=== PATIENT | male | born 1960 | race Caucasian/White ===

== ENCOUNTER 2023-05-02 10:16 | Outpatient (AMB) | payer OTHER, SELFPAY ==
--- NOTE | 2023-05-02 10:14 | A.OFFPC_ITS ---
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 Woodall Last office visit/CPE: < 1 yr Acute issue(s): TN 2-3 years ago PMHx: CAD, [place] (Cardiology at [facility]), HTN, HLD, h/o opiate use d.o after back pain meds, kidney stones, Peyrones disease. h/o alcohol abuse SurgHx: Cardiac stents, lumbar pain discectomy FHx: Dad: EtOH, Heart disease/CAD/[place], Prostate CA SocHx: Quit cigs 10-12 years ago. EtOH none x 20 years. No drugs PFSH Medical History (Updated 05/02/23 @ 11:10 by Aristides Velasquez) Alcohol abuse Asthma Heart attack Lower back pain Opiate use Peyronie's disease Surgical History (Updated 05/02/23 @ 10:25 by Elena Patterson CMA) Previous back surgery Stented coronary artery Family History (Updated 05/02/23 @ 10:27 by Elena Patterson CMA) Father Heart attack Alcoholism Brother Alcoholism Social History (Updated 05/02/23 @ 10:31 by Elena Patterson CMA) Household Members: Spouse Housing: Apartment Alcohol intake: former Patient Tobacco Use Status: Former Tobacco user e-Cigarette/Vaping Use: Former Use Substance Use Type: Painkillers Have you been hit, kicked, punched, or otherwise hurt by someone within the past year? If so, by whom?: No Do you feel safe in your current relationship?: Yes Is there a partner from a previous relationship who is making you feel unsafe now?: No Are you made to feel afraid or neglected: No Jainism Healthcare Practices: Pentacostal Are you DNR?: No Advance Directives: No Advance Directives Information Provided: No Advance Directives on File: No Healthcare Proxy: No service: No Current occupational status: retired Cognitive needs: No Hearing needs: No Vision needs: Yes (Patient wears glasses.) Questionnaire PHQ-9 Over the last 2 weeks, how often have you been bothered by any of the following problems? 1. Little interest or pleasure in doing things: several days 2. Feeling down, depressed, or hopeless: not at all 3. Trouble falling or staying asleep, or sleeping too much: several days 4. Feeling tired or having little energy: more than half the days 5. Poor appetite or overeating: more than half the days 6. Feeling bad about yourself - or that you are a failure or have let yourself or your family down: more than half the days 7. Trouble concentrating on things, such as reading the newspaper or watching television: several days 8. Moving or speaking so slowly that other people could have noticed. Or the opposite - being so fidgety or restless that you have been moving around a lot more than usual: not at all 9. Thoughts that you would be better off or of hurting yourself in some way: not at all Total score: 9 Source: Developed by Drs. Anderson Jones, Anita Ahumada, Nahun Staley and colleagues, with an educational lauri from [employer]. Thrive Questionnaire I am a: Patient What is your living situation today?: I have a steady place to live Within the past 12 months, did the food you bought not last and you didn't have the money to get more?: Never true Within the past 12 months, did you worry whether your food would run out before you got money to buy more?: Never true Do you have trouble paying for medicines?: No Do you have trouble getting transportation to medical appointments?: Yes Do you have trouble paying your heating and electricity bill?: Yes Do you have trouble taking care of your child, family member or friend?: No Do you have trouble with day-to-day activities such as bathing, preparing meals, shopping, managing finances, etc.?: No Are you currently unemployed and looking for a job?: No Are you interested in more education?: No AUDIT C Alcohol Use Questionnaire (AUDIT-C) 1. How often do you have a drink containing alcohol?: Never 3. How often do you have six or more drinks on one occasion?: Never Total Score: 0 TOSHIA-7 AMB Questionnaire TOSHIA-7 Feeling nervous, anxious, or on edge: 1 = Several days Not being able to stop or control worryin = Nearly every day Worrying too much about different things: 3 = Nearly every day Trouble relaxin = Nearly every day Being so restless that it is hard to sit still: 1 = Several days Becoming easily annoyed or irritable: 0 = Not at all Feeling afraid as if something awful might happen: 0 = Not at all Total TOSHIA-7 score (0-4 normal; 5-9 mild; 10-14 moderate; 15-21 severe): 11 Source: Developed by Drs. Anderson Jones, Anita Ahumada, Nahun Staley and colleagues, with an educational lauri from [employer]. ACT Questionnaire In the past 4 weeks, how much of the time did your asthma keep you from getting as much done at work, school or at home?: Some of the time During the past 4 weeks, how often have you had shortness of breath?: 1-2 times a week During the past 4 weeks, how often did your asthma symptoms wake you up at night or earlier than usual in the morning?: 2-3 nights a week During the past 4 weeks, how often have you had to use your rescue inhaler or nebulizer medication?: Not at all How would you rate your asthma control during the past 4 weeks?: Well controlled Score: 18 Physical exam (Primary Care) Vital Signs: Last Vital Signs Pulse 64 05/02/23 10:16 BP 126/78 05/02/23 10:16 Pulse Ox 98 05/02/23 10:16 Oxygen Delivery Method Room Air 05/02/23 10:16 BMI result Body Mass Index 25.7 Tobacco/Smoking Status: Tobacco use Status Tobacco use date assessed 05/02/23 05/02/23 10:35 Patient Tobacco Use Status Former Tobacco user 05/02/23 10:35 e-Cigarette/Vaping Use Former Use 05/02/23 10:35 PHQ-9: PHQ-9 Score PHQ-9: Total score 9 05/02/23 10:53 Assessment and Plan Assessment & Plan (1) Coronary artery disease: Code(s): I25.10 - Atherosclerotic heart disease of [place] coronary artery without angina pectoris Plan: History of coronary artery disease and [place]. Appears to have cardiology at [facility] with annual follow-up visits. EKG: Normal sinus rhythm, normal axis, no hypertrophy, old septal infarct. He is on atorvastatin and also has blood pressure control with metoprolol and losartan No medication changes today Follow-up with Cardiology as recommended (2) History of [place] (myocardial infarction): Code(s): I25.2 - Old myocardial infarction Plan: As above and status post stents (3) Hypertension: Code(s): I10 - Essential (primary) hypertension Plan: Blood pressure is controlled. Goal is less than 130/80 Continue current medications (4) Hyperlipidemia: Code(s): E78.5 - Hyperlipidemia, unspecified Plan: History of coronary artery disease and [place] LDL goal is less than 70 Check labs (5) Laboratory exam ordered as part of routine general medical examination: Code(s): Z00.00 - Encounter for general adult medical examination without abnormal findings Plan: Check labs (6) Peyronie disease: Code(s): N48.6 - Induration penis plastica Orders: Orders Comprehensive [place]. Panel Fast Today Z00.00 - Encounter for general adult medical examination without abnormal findings Lipid Panel Today Z00.00 - Encounter for general adult medical examination without abnormal findings Prostate Specific Antigen Scr Today Z12.5 - Encounter for screening for maligna nt neoplasm of prostate TSH reflex Free T4 Today Z00.00 - Encounter for general adult medical examination without abnormal findings Microalbumin, Random (w Creat) Today I10 - Essential (primary) hypertension Complete Blood Count Auto Diff Today Z00.00 - Encounter for general adult medical examination without abnormal findings UA and rflx microscopic Today Z00.00 - Encounter for general adult medical examination without abnormal findings AMB EKG-In Office Today I25.2 - Old myocardial infarction Referrals Urology Referral N48.6 - Induration penis plastica Coding Level of Care Code New Pt Level 4 (46558) Diagnoses Coronary artery disease I25.10 History of [place] (myocardial infarction) I25.2 Hypertension I10 Hyperlipidemia E78.5 Laboratory exam ordered as part of routine general medical examination Z00.00 Peyronie's disease N48.6
[2023-05-02 10:16] VITALS: BP 126/78; PULSE 64; O2SAT 98; BMI 25.7
== END 2023-05-02 11:25 | disposition home or self-care (01) ==
PROVIDERS: PCP Family Medicine; Visit Provider Family Medicine
DX: I25.10 Atherosclerotic heart disease of native coronary artery without angina pectoris (principal); I25.2 Old myocardial infarction; I10 Essential (primary) hypertension; E78.5 Hyperlipidemia, unspecified; Z00.00 Encounter for general adult medical examination without abnormal findings; N48.6 Induration penis plastica
CPT/HCPCS: 99204

== ENCOUNTER 2023-06-07 11:59 | Outpatient (REF) | payer OTHER, SELFPAY ==
[2023-06-07 13:58] LABS: MANUAL DIFF FLAG NO
[2023-06-07 14:11] LABS: Basophils Percent Auto 0.5 % (0-2); Eosinophils Absolute Auto 0.1 X10*3/uL (0.0-0.4); Eosinophils Percent Auto 1.5 % (0-4); Hematocrit 39.9 % (42.0-52.0); Hemoglobin 13.7 g/dl (14.0-18.0); Imm Gran Abs Auto 0.02 X10*3/uL (0.00-0.03); Imm Gran Pct Auto 0.3 % (0.0-0.4); Lymphocytes Absolute Auto 1.6 X10*3/uL (1.2-4.9); Mean Corpuscular HGB Conc 34.3 g/dl (31.0-36.0); Mean Corpuscular Volume 90.3 fL (80.0-98.0); Mean Platelet Volume 11.2 fL (9.4-12.4); Monocytes Absolute Auto 0.5 X10*3/uL (0.1-1.2); Monocytes Percent Auto 7.6 % (2-11); Neutrophils Absolute Auto 4.3 x10*3/uL (2.0-8.3); Neutrophils Percent Auto 66.1 % (45-73); Platelet Count 187 X10*3/uL (160-400); Red Blood Count 4.42 X10*6/uL (4.60-5.80); Red Cell Distribution Width 12.8 % (11.0-16.0); White Blood Count 6.5 X10*3/uL (4.8-10.8)
[2023-06-07 15:09] LABS: Alanine Aminotransferase 14 U/L (0-40); Albumin Level 3.9 g/dL (3.5-5.0); Alkaline Phosphatase 95 U/L (39-117); Anion Gap 10 (12-20); Aspartate Amino Transferase 17 U/L (5-37); Bilirubin Total 0.6 mg/dL (0.0-1.0); Blood Urea Nitrogen 14 mg/dL (9-16); Calcium 9.5 mg/dL (8.4-10.2); Carbon Dioxide 30 mmol/L (22-29); Chloride 105 mmol/L (96-108); Cholesterol 106 mg/dL (<200); Estimated Glomerular Filt Rate > 60; Glucose Fasting 92 mg/dL (60-99); HDL Cholesterol 39 mg/dL (>40); LDL Cholesterol Calculated 52 mg/dL (<100); Potassium 4.2 mmol/L (3.3-5.1); Sodium 141 mmol/L (135-145); Total Protein 7.1 g/dL (6.5-8.0); Triglycerides 76 mg/dL (<150)
[2023-06-07 15:24] LABS: Prostate Specific Antigen Scr 1.55 ng/mL (<0.05-4.0)
[2023-06-07 15:25] LABS: TSH reflex Free T4 1.17 uIU/mL (0.32-4.0)
== END 2023-06-07 12:00 | disposition home or self-care (01) ==
LOC: HO.WFDLDS 11:59
PROVIDERS: Visit Provider Family Medicine
DX: Z00.00 Encounter for general adult medical examination without abnormal findings (principal); Z20.2 Contact with and (suspected) exposure to infections with a predominantly sexual mode of transmission; Z12.5 Encounter for screening for malignant neoplasm of prostate
CPT/HCPCS: 36415; 80053; 80061; 84153; 84443; 85025

== ENCOUNTER 2023-07-10 09:11 | Outpatient (REF) | payer OTHER, SELFPAY ==
[2023-07-10 11:53] LABS: Appearance Urine Clear; Color Urine Yellow; Glucose Urine UA Negative (Negative); Leukocyte Esterase Urine Negative (Negative); Nitrite Urine Negative (Negative); UMIC TRIGGER UA YES; Urine Blood Small (1+) (Negative); Urine Ketones Negative (Negative); Urine Protein Negative (Neg-Trace)
[2023-07-10 11:58] LABS: Bacteria Urine 1+ (None Seen); Hyaline Casts Urine 0-2 /LPF (0-2); Squamous Epithelial Cell Urine 0-2 /HPF (0-2); WBC Urine 0-5 /HPF (0-5)
[2023-07-10 13:20] LABS: Creatinine Urine 99.99 mg/dL; Microalbumin Urine < 5.0 mg/L
== END 2023-07-10 09:12 | disposition home or self-care (01) ==
LOC: HO.WFDLNP 09:11
PROVIDERS: Visit Provider Family Medicine
DX: I10 Essential (primary) hypertension (principal)
CPT/HCPCS: 81001; 82043; 82570

== ENCOUNTER 2025-10-04 11:23 | Outpatient (AMB) | payer MEDICARE, MEDICAID, SELFPAY ==
--- NOTE | 2025-10-04 11:41 | A.OFFPC_ITS ---
Vital Signs 10/04/25 11:44 10/04/25 11:53 Height 5 ft 5 in Weight 158 lb 6 oz BMI 26.4 BP 147/70 H 141/81 H Blood Pressure Location Lt brachial Lt brachial Position Sitting Sitting Respiration 12 Pulse 71 Pulse Source Pulse Oximeter Temp 97.8 F Temp Source Oral Pulse Oximetry (%) 99 Oxygen Delivery Method Room Air Intake Visit Reasons: back issues Intake Note: patient here c/o back issues Supervisor Malt House Required: No Allergies No Known Allergies Allergy (Verified 10/04/25 11:46) Medication List - Last Reconciled 10/04/25 by Sabas Ashley MD atorvastatin 80 mg PO DAILY buprenorphine-naloxone 4-1 mg 1 film sublingual DAILY diclofenac sodium 1% (Arthritis Pain (diclofenac)) 4 grams topical BID 30 days losartan 25 mg PO DAILY metoprolol succinate ER 25 mg PO DAILY naloxone 4 mg/actuation 0 sprays intranasal naproxen 500 mg PO BID PRN 30 days Tobacco use date assessed: 10/04/25 Fall risk assessment: 1 Fall in past year Last assessed Fall Risk: 10/04/25 Dental Screening Dental Screen Date: 10/04/25 Did you have a dental visit in the last 12 months?: No Did you have a dental problem in the last 6 months where you did not have access to dental care?: No Was dental information given to patient?: Patient has dentist HPI back issues HPI Details 65 y/o male presents today with complain ts of back pain. Hx of [place]. Blood pressure today 141/81, 71p. He is on losartan 25mg, metoprolol 25mg daily. Pt notes he had been out of his meds due to insurance issues. He now has insurance. Reports back pain. He had fallen to the ground trying to catch a ball and reports back pain since. Reports previous back surgeries. HPI Comments History of Present Illness Details Documentation assistance for Sabas Ashley MD, was provided by Aristides Velasquez, Equine Manager on 10/04/2025 at 12:22 PM EST. I, Dr. Ashley, have read, observed, and verified documentation. [facility] Medical History (Updated 10/04/25 @ 12:34 by Sabas Ashley MD) Alcohol abuse Peyronie's disease Opiate use Lower back pain Asthma Heart attack Surgical History Previous back surgery Stented coronary artery Family History Father Heart attack Alcoholism Brother Alcoholism Social History (Updated 10/04/25 @ 11:48 by Madyson Campos CMA) Household Members: Spouse Housing: Apartment Alcohol intake: former Patient Tobacco Use Status: Former Tobacco user e-Cigarette/Vaping Use: Former Use Substance Use Type: Former Substance User and Painkillers service: No Current occupational status: retired Cognitive needs: No Hearing needs: No Vision needs: Yes (Patient wears glasses.) Questionnaire PHQ-9 Over the last 2 weeks, how often have you been bothered by any of the following problems? 1. Little interest or pleasure in doing things: several days 2. Feeling down, depressed, or hopeless: not at all 3. Trouble falling or staying asleep, or sleeping too much: nearly every day 4. Feeling tired or having little energy: not at all 5. Poor appetite or overeating: not at all 6. Feeling bad about yourself - or that you are a failure or have let yourself or your family down: not at all 7. Trouble concentrating on things, such as reading the newspaper or watching television: not at all 8. Moving or speaking so slowly that other people could have noticed. Or the opposite - being so fidgety or restless that you have been moving around a lot more than usual: not at all 9. Thoughts that you would be better off or of hurting yourself in some way: not at all Total score: 4 Depression Screening Interpretation: Positive Depression Screening Done: Yes 91166 - PHQ-9 Billing: Yes Source: Developed by Drs. Anderson Jones, Anita Ahumada, Nahun Staley and colleagues, with an educational lauri from [employer]. Thrive Questionnaire Date Thrive assessed: 10/04/25 I am a: Patient What is your living situation today?: I have a steady place to live Within the past 12 months, did the food you bought not last and you didn't have the money to get more?: Never true Within the past 12 months, did you worry whether your food would run out before you got money to buy more?: Never true Do you have trouble paying for medicines?: No Do you have trouble getting transportation to medical appointments?: No Do you have trouble paying your heating and electricity bill?: No Do you have trouble taking care of your child, family member or friend?: No Do you have trouble with day-to-day activities such as bathing, preparing meals, shopping, managing finances, etc.?: No Are you currently unemployed and looking for a job?: No Are you interested in more education?: 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 How often do you have a drink containing alcohol?: Never 3. How often do you have six or more drinks on one occasion?: Never Total Score: 0 TOSHIA-7 AMB Questionnaire TOSHIA-7 Date TOSHIA - 7 assessed: 10/04/25 Feeling nervous, anxious, or on edge: 1 = Several days Not being able to stop or control worryin = Several days Worrying too much about different things: 1 = Several days Trouble relaxin = Not at all Being so restless that it is hard to sit still: 0 = Not at all Becoming easily annoyed or irritable: 0 = Not at all Feeling afraid as if something awful might happen: 1 = Several days Total TOSHIA-7 score (0-4 normal; 5-9 mild; 10-14 moderate; 15-21 severe): 4 Source: Developed by Drs. Anderson Jones, Anita Ahumada, Nahun Staley and colleagues, with an educational lauri from [employer]. Review of Systems Const Denies chills, Denies fatigue, Denies fever(s), Denies headache(s) and Denies weakness ENT Denies dizziness and Denies headache(s) Card Denies dyspnea Resp Denies cough, Denies dyspnea, Denies wheezing and Denies other (shortness of breath) Musc Reports back pain, Denies numbness and Denies tingling Neuro Denies dizziness, Denies headache(s), Denies numbness, Denies tingling and Denies weakness Psych Denies anxiety and Denies depression Endo Denies fatigue Aller/Immun Denies wheezing Physical exam (Primary Care) Vital Signs: Last Vital Signs Temp 97.8 F 10/04/25 11:44 Pulse 71 10/04/25 11:44 Resp 12 10/04/25 11:44 BP 141/81 H 10/04/25 11:53 Pulse Ox 99 10/04/25 11:44 Oxygen Delivery Method Room Air 10/04/25 11:44 BMI result Body Mass Index 26.4 Tobacco/Smoking Status: Tobacco use Status Tobacco use date assessed 10/04/25 10/04/25 11:50 Patient Tobacco Use Status Former Tobacco user 10/04/25 11:48 e-Cigarette/Vaping Use Former Use 10/04/25 11:48 PHQ-9: PHQ-9 Score PHQ-9: Total score 4 10/04/25 11:54 Depression Screening Interpretation: Positive Thrive Assessment: Date of Thrive Assessment Date Thrive assessed 10/04/25 10/04/25 11:54 Currently or been in a relationship where the following occur: No concerns reported Const General: well developed; No acute distress Nutritional Appearance: well nourished Orientation/consciousness: patient oriented x3 HENMT Head: Yes normocephalic and Yes atraumatic Eyes General: appearance normal, both eyes and all related structures Pupils: Equal, round and reactive pupils present EOM: EOMs intact bilaterally Resp Effort & Inspection: normal respiratory effort Auscultation: clear to auscultation bilaterally Cardio Rate: regular rate Rhythm: regular rhythm Heart sounds: S1 normal heart sound present, S2 normal heart sound present, no gallops, no murmurs and no rubs Neuro General: patient oriented x3 and gait normal Cranial nerves: Yes Equal, round and reactive pupils present Psych Affect: normal affect Coding Level of Care Code Est Pt Level 4 (35940) Diagnoses Hypertension I10 Coronary artery disease I25.10 History of [place] (myocardial infarction) I25.2 Back pain M54.9 Additional Codes PHQ-9 - 80245 - PHQ-9 Billing: Yes ([id number]) Assessment & Plan Assessment & Plan (1) Hypertension: Code(s): I10 - Essential (primary) hypertension Category: Medical Plan: Blood pressure is too high in patient with history of CAD and [place]. Goal is less than 130/80 Resume losartan and metoprolol (2) Coronary artery disease: Code(s): I25.10 - Atherosclerotic heart disease of [place] coronary artery without angina pectoris Category: Medical Plan: History of coronary artery disease and [place] Resume atorvastatin Control blood pressure (3) History of [place] (myocardial infarction): Code(s): I25.2 - Old myocardial infarction Category: Medical Plan: As above (4) Back pain: Code(s): M54.9 - Dorsalgia, unspecified Category: Medical Plan Acute on chronic back pain and patient had a recent fall. Now has pain at mid and lower back which wraps around right ribs. Check x-ray of mid and lower back as well as right ribs. Can use NSAIDs so will give him a script for naproxen and also diclofenac Will follow-up on imaging and determine next steps which may include physical therapy or referral. Orders: Orders Complete Blood Count Auto Diff Today Z00.00 - Encounter for general adult medical examination without abnormal findings Lipid Panel Today Z00.00 - Encounter for general adult medical examination without abnormal findings Microalbumin, Random (w Creat) Today I10 - Essential (primary) hypertension Prostate Specific Antigen Scr Today Z12.5 - Encounter for screening for malignant neoplasm of prostate XR lumbar spine 2-3V Today M54.9 - Dorsalgia, unspecified XR ribs RT 2V Today M54.9 - Dorsalgia, unspecified, R07.89 - Other chest pain Comprehensive [place]. Panel Fast Today Z00.00 - Encounter for general adult medical examination without abnormal findings TSH reflex Free T4 Today Z00.00 - Encounter for general adult medical examination without abnormal findings UA CC w/rflx Micro + Cult Today Z00.00 - Encounter for general adult medical examination without abnormal findings XR thoracic spine 2V Today M54.9 - Dorsalgia, unspecified Medications: New naproxen 500 mg PO BID PRN 60 tabs 0RF pain 30 days diclofenac sodium 1% (Arthritis Pain (diclofenac)) apply to single knee, ankle, foot; for foot includes sole/toes/top of foot 4 grams topical BID 200 grams 2RF 30 days Changed From atorvastatin 80 mg PO DAILY To atorvastatin 80 mg PO DAILY 90 tabs 3RF 90 days From losartan 25 mg PO DAILY To losartan 25 mg PO DAILY 90 tabs 3RF 90 days From metoprolol succinate ER 25 mg PO DAILY To metoprolol succinate ER 25 mg PO DAILY 90 tabs 3RF 90 days
[2025-10-04 11:44] VITALS: BP 147/70; PULSE 71; RESP 12; TEMP 36.6; O2SAT 99; BMI 26.4
[2025-10-04 11:53] VITALS: BP 141/81
--- OUTSIDE RECORDS SUMMARY | 2025-10-04 14:34 | XMS_ITS | Clinical Summary ---
Author Organization [employer] Address [address] [place] [address] Care Team Providers Care Corporate Fitness Program Coordinator Name Role Phone Unavailable Primary Care Provider Unavailabl e Social History Tobacco Use Types Packs/Day Years Used Date Smoking Tobacco: Never Assessed Sex and Gender Information Value Date Recorded Sex Assigned at Male 08/13/2022 10:17 AM EDT Legal Sex Male 10:17 AM EDT Gender Identity Male 08/13/2022 10:17 AM EDT Sexual Orientation Straight 08/13/2022 10 :17 AM EDT Plan of Treatment Health Maintenance Due Date Last Done Comments CT Colonography 1958 Colonoscopy 1958 Colorectal Cancer Screening 1958 Depression Screening 1958 FIT DNA/Cologuard 1958 FIT 1958 FOBT 1958 Lipid Panel 1958 Sigmoidoscopy 1958 Alcohol/Substance Use Screening 1970 Tobacco Screening 1970 DTaP/Tdap/Td Vaccines (1 - Tdap) 1977 Pneumococcal Vaccine: 50+ Ye ars (1 of 1 - PCV) 2008 Zoster Vaccines (1 of 2) 2008 COVID-19 Vaccine ( - 2024-2 6 season) 2025 Influenza Vaccine (#1) 2025 RSV Patients and Pa tients Aged 60 years or older (1 - 1-dose 75+ series) 2033 HIB Vaccines Aged Out No longer eligi ble based on patient's age to complete this topic HPV Vaccines Aged Out No longer eligi ble based on patient's age to complete this topic Hepatitis A Vaccines Aged Out No long er eligible based on patient's age to complete this topic Hepatitis B Vaccines Aged Out No long er eligible based on patient's age to complete this topic IPV Vaccines Aged Out No longer eligi ble based on patient's age to complete this topic Meningococcal B Vaccine Aged Out No l onger eligible based on patient's age to complete this topic Meningococcal Vaccine Aged Out No vangie miller eligible based on patient's age to complete this topic RSV under 20 months Aged Out No longe r eligible based on patient's age to complete this topic Rotavirus Vaccines Aged Out No longer eligible based on patient's age to complete this topic
--- OUTSIDE RECORDS SUMMARY | 2025-10-04 14:34 | XMS_ITS | Encounter Summary ---
Author Organization [facility] Address [address] [place] [phone] Phone Care Team Providers Care Light Out Examiner Name Role Phone Hay Mayberry NP Primary Care Provider [phone] Reason for Referral * MRI/CAT Scan - Closed Specialty Diagnoses / Procedures Referred By Contvladislav t Referred To Contact Radiology Diagnoses 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 pectoris Procedures NC Myocardial Perfusion Exercise Multiple NC Myocardial Perfusion Stress Single Christian Shields MD Phone: tel: [email or web address]:[email or web address] Referral ID Status Reason Start Date Expiration Date Visits Re quested Visits Authorized [id number] Closed 11/19/2017 11/19/2018 1 1 Encounter Details Date Type Department Care Team (Latest Contact Info) Description 11/28/2017 Ancillary Orders [facility] [address] [facility] 3[address] Floor, [address] [place] [address] Christian Shields MD [address] [place] [phone] [email or web address] 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 pectoris Social History Tobacco Use Types Packs/Day Years Used Date Smoking Tobacco: Never Assessed Sex and Gender Information Value Date Recorded Sex Assigned at Not on file Legal Sex Male 9:29 AM EST Gender Identity Not on file Sexual Orientation Not on file documented as of this encounter Plan of Treatment Not on file documented as of this encounter Results * NC Myocardial Perfusion Exercise Multiple (12/31/2017 1:23 PM EDT) Anatomical Region Laterality Modality Heart, Vascular Ultrasound Narrative 01/02/2018 1:48 PM EDT Abnormal study There is a medium-sized area of severe fixed decreased tracer uptake involving the distal anterior wall, distal septum and apex consistent with a transmural LAD scar. There is no evidence of significant ischemia. Mild LV dysfunction with apical akinesis. Study Quality Overall image quality is good. There are no artifacts present. NC Study Impression There is no prior study for comparison. Stress Test Result Exercise Stress Test Report: Reason for termination: Fatigue and chest pressure Summary: Resting ECG: SR HR 75 with incomplete IVCD and NSSTW Functional capacity: Fair Heart rate response to exercise: Appropriate Blood pressure response to exercise: Normal resting-appropriate response Chest pain: 4/10 left upper chest pressure at peak exercise that resolves with rest Arrhythmias: None ST-T changes:None Overall impression: Abnormal exercise stress test Conclusion: Aristides Ruiz exercised for 7:16 Minutes on a standard Bar protocol achieving 90% MPHR (146 BPM) and 10.10 METS. Test terminated due to fatigue Summary: 1. EKG: No EKG evidence of ischemia per criteria 2. Symptoms: 4/10 left upper chest pressure at peak exercise that resolves with rest 3. Exercise physiology: Normal heart rate and BP response to exercise. Max HR 146 With normal HR recovery. Max BP 160/90 From baseline BP of 124/70 . 02 sat 98% and stable throughout the procedure. Fair functional capacity for age noted 4. Arrhythmia:None Conclusion: Abnormal exercise stress test. No ischemic EKG changes, however pt was noted to have 4/10 left upper chest pressure at peak exercise that resolved with rest. Vital signs at baseline at time of discharge from the lab. Nuclear images to follow. EKG reviewed with Dr. Gen Cameron ACCOUNTING ASSOCIATE Nuclear Cardiology Measurements End systolic (mL): 48 TID: 1 End diastolic (mL): 99 Stress EF=52% Rest EF=44% Ejection Fraction: Mild (40-49%)Patient was injected Lt AC IV during stress with 12.2mCi Tc99m Sestamibi and with 12.1mCi Tc99m Sestamibi Lt AC at rest. Nuclear Study Quality Overall image quality is good. There are no artifacts present. Nuclear Prior Study Abnormal study There is a medium-sized area of severe fixed decreased tracer uptake involving the distal anterior wall, distal septum and apex consistent with a transmural LAD scar. There is no evidence of significant ischemia. Mild LV dysfunction with apical akinesis.. Perfusion Scoring Resting Summed Score: 7 Percent Normal: 10.29% Severe count reduction in the following segments: apical anterior and apex. Mild count reduction in the following segments: mid anterior. All other segments are normal. Perfusion Scoring Stress Summed Score: 11 Percent Normal: 16.18% Severe count reduction in the following segments: apical anterior, apical septal and apex. Mild count reduction in the following segments: basal anteroseptal and mid anterior. All other segments are normal. 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 It is not the complete legal health record.[facility]
--- OUTSIDE RECORDS SUMMARY | 2025-10-04 14:34 | XMS_ITS | Clinical Summary ---
Author Organization [facility] Address [address] [place] [address] Phone Care Team Providers Care Faculty Physician Name Role Phone Hay Mayberry NP Primary Care Provider Social History Tobacco Use Types Packs/Day Years Used Date Smoking Tobacco: Never Assessed Education Answer Date Recorded Are you interested in more education? Not on mitali e 02/08/2023 Are you concerned about learning? Not on file 02/08/2023 No 02/08/2023 No 02/08/2023 Digital Access Answer Date Recorded No 03/09/2023 No 03/09/2023 No 03/09/2023 Reliable internet access at home? Not on file 03/09/2023 Device with a working camera? Not on file Sex and Gender Information Value Date Recorded Sex Assigned at Not on file Legal Sex Male 9:29 AM EST Gender Identity Not on file Sexual Orientation Not on file Last Filed Vital Signs Vital Sign Reading Time Taken Comments Blood Pressure 144/86 11/25/2017 2:21 PM EST rec overy 4 min Pulse - - Temperature - - Respiratory Rate - - Oxygen Saturation 98% 11/25/2017 2:14 PM EST Inhaled Oxygen Concentration - - Weight - - Height - - Body Mass Index - - Plan of Treatment Health Maintenance Due Date Last Done Comments LIPID PANEL 1958 DEPRESSION SCREENING 1970 SMOKING Hx and SMOKELESS TOBACCO SCREENING 1971 HEPATITIS C SCREENING 1976 COLOGUARD 2003 COLONOSCOPY 2003 COLORECTAL CANCER SCREENING 2003 FIT TEST 2003 FOBT 2003 SIGMOIDOSCOPY 2003 VIRTUAL COLONOSCOPY 2003 ZOSTER VACCINES (1 of 2) 2008 PNEUMOCOCCAL VACCINES (50+ years) (2 of 2 - PCV) 07/19/2017 07/19/2016 INFLUENZA VACCINE (#1) 2025 9, 07/10/2018, 07/22/2017, Additional history exists COVID-19 VACCINE (2 - 2024- season) 2025 04/12/2021 Adult Td,Tdap Booster 04/01/2029 04/01/2019 RSV VACCINE (1 - 1-dose 75+ series) 2033 HEPATITIS A VACCINES Aged Out No long er eligible based on patient's age to complete this topic HIB VACCINES Aged Out No longer eligi ble based on patient's age to complete this topic MENINGOCOCCAL VACCINES (ACWY) Aged Out No longer eligible based on patient's age to complete this topic MENINGOCOCCAL VACCINES (B) Aged Out N o longer eligible based on patient's age to complete this topic Medical Devices Not on file Insurance [facility] MEDICARE REPLACEMENT CHERIALVINO [id number] [facility] C[facility] MEDICARE REPLACEMENT [facility] MEDICARE REPLACEMENT [facility] MEDIC[facility] REPLACEMENT [facility] MEDIC[facility] REPLACEMENT [facility] MEDICARE REPLACEMENT [facility] MEDICARE REPLACEMENT [facility] MEDICARE REPLACEMENT [facility] ONE CARE MEDICARE REPLACEMENT [place] ALONZO [id number] Care Teams Faculty Physician Relationship Specialty Start Date End Date Hay Mayberry NP [address] [place] [address] PCP - General Process Coordinator 12/31/17 Additional Source Comments The information contained in this document represents components of the legal health record. It is not the complete legal health record.[facility]
--- OUTSIDE RECORDS SUMMARY | 2025-10-04 14:34 | XMS_ITS | Encounter Summary ---
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 pectoris (Primary Dx) Social History Tobacco Use Types Packs/Day Years Used Date Smoking Tobacco: Never Assessed Sex and Gender Information Value Date Recorded Sex Assigned at Not on file Legal Sex Male 9:29 AM EST Gender Identity Not on file Sexual Orientation Not on file documented as of this encounter Plan of Treatment Not on file documented as of this encounter Visit Diagnoses Diagnosis 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 It is not the complete legal health record.[facility]
== END 2025-10-04 12:33 | disposition home or self-care (01) ==
LOC: HO.HMCFM 11:24
PROVIDERS: PCP Family Medicine; Visit Provider Family Medicine
DX: I10 Essential (primary) hypertension (principal); I25.10 Atherosclerotic heart disease of native coronary artery without angina pectoris; I25.2 Old myocardial infarction; M54.9 Dorsalgia, unspecified

== ENCOUNTER → 2025-10-04 11:23 | Outpatient (BNVA) | payer MEDICARE, MEDICAID, SELFPAY | PROVIDERS: PCP Family Medicine; Visit Provider Family Medicine | DX: I10 Essential (primary) hypertension (principal); I25.10 Atherosclerotic heart disease of native coronary artery without angina pectoris; I25.2 Old myocardial infarction; M54.9 Dorsalgia, unspecified; Z13.31 Encounter for screening for depression; Z79.899 Other long term (current) drug therapy | CPT/HCPCS: 96127; 99212 ==

== ENCOUNTER 2025-10-12 10:03 | Outpatient (REF) | payer MEDICARE, MEDICAID, SELFPAY ==
--- NOTE | ~2025-10-12 | XR_ITS ---
CLINICAL HISTORY: M54.9 - Dorsalgia, unspecified 3 views thoracic spine Comparison: None Findings: No fractures or dislocations. Normal vertebral body alignment. There is anterior vertebral body spurring at mid to lower thoracic levels. There is a ossification of the anterior longitudinal ligament, suggesting DISH disease as well. Impression: 1. Degenerative disc disease and evidence of DISH disease. This document has been electronically signed by: Janes Ramírez MD on 10/13/2025 18:12:57
--- NOTE | ~2025-10-12 | XR_ITS ---
CLINICAL HISTORY: M54.9 - Dorsalgia, unspecified Right rib films with PA chest Comparison: None Findings: No rib fractures. Bones unremarkable. Lungs are clear bilaterally. Cardiac and mediastinal contours appear unremarkable. Impression: 1. No right rib fractures. This document has been electronically signed by: Janes Ramírez MD on 10/13/2025 18:08:52
--- NOTE | ~2025-10-12 | XR_ITS ---
CLINICAL HISTORY: M54.9 - Dorsalgia, unspecified 3 views lumbar spine Comparison: None Findings: No fractures or dislocations. Normal vertebral body alignment. Intervertebral disc heights appear maintained. There is diffuse mqfi-en-dmubbseh lumbar vertebral body spurring. There is mild facet arthropathy, more significant L5-S1.. Sacroiliac joints unremarkable. Calcific densities overlying both kidneys suggest bilateral nephrolithiasis. Impression: 1. Lumbar degenerative changes as described above. This document has been electronically signed by: Janes Ramírez MD on 10/13/2025 18:13:26
[2025-10-12 10:27] LABS: MANUAL DIFF FLAG NO
[2025-10-12 10:50] LABS: Hematocrit 40.7 % (42.0-52.0); Hemoglobin 14.1 g/dl (14.0-18.0); Imm Gran Abs Auto 0.02 X10*3/uL (0.00-0.03); Imm Gran Pct Auto 0.3 % (0.0-0.4); Lymphocytes Absolute Auto 1.9 X10*3/uL (1.2-4.9); Mean Corpuscular HGB Conc 34.6 g/dl (31.0-36.0); Mean Corpuscular Hemoglobin 30.7 pg (27.0-33.0); Mean Corpuscular Volume 88.5 fL (80.0-98.0); NRBC Abs Auto 0.000 X10*3/uL (0.0-0.012); NRBC Pct Auto 0.0 /100WBC (0.0-0.2); Platelet Count 194 X10*3/uL (160-400); Red Blood Count 4.60 X10*6/uL (4.60-5.80); White Blood Count 7.0 X10*3/uL (4.8-10.8)
[2025-10-12 11:15] LABS: Appearance Urine Clear; Glucose Urine UA Negative (Negative); PH 5.5 (5.0-9.0); Specific Gravity - Urine >= 1.030 (1.005-1.025); UMIC TRIGGER UACC YES
[2025-10-12 11:47] LABS: Microalbum/Creatinine Ratio Ur 6.0 ug/mg cr (<30)
[2025-10-12 12:04] LABS: Alanine Aminotransferase 23 U/L (0-40); Albumin Level 4.4 g/dL (3.5-5.0); Alkaline Phosphatase 105 U/L (39-117); Anion Gap 12 (12-20); Aspartate Amino Transferase 25 U/L (5-37); Blood Urea Nitrogen 14 mg/dL (9-16); Calcium 9.3 mg/dL (8.4-10.2); Carbon Dioxide 28 mmol/L (22-29); Chloride 105 mmol/L (96-108); Cholesterol 117 mg/dL (<200); Estimated Glomerular Filt Rate > 60; HDL Cholesterol 42 mg/dL (>40); Potassium 4.7 mmol/L (3.3-5.1); Sodium 140 mmol/L (135-145); Total Protein 7.4 g/dL (6.5-8.0); Triglycerides 67 mg/dL (<150)
--- OUTSIDE RECORDS SUMMARY | 2025-10-12 13:20 | XMS_ITS | Clinical Summary ---
Author Organization [facility] Address [address] [facility] [facility] [address] [place] [address] Phone Care Team Providers Care Intensive Care Nurse Name Role Phone Hay Mayberry NP Primary [...] topic Medical Devices Not on file Insurance [facility] MEDICARE REPLACEMENT [place]ERIALV[place] [id number] [facility] C[facility] MEDICARE REPLACEMENT [facility] MEDICARE REPLACEMENT [facility] MEDICARE [facility]PLACEMENT [facility] MEDICARE REPLACEMENT [facility] MEDICARE [facility]PLACEMENT [facility] MEDICARE REPLACEMENT [facility] MEDICARE REPLACEMENT [facility] ONE CARE MEDICARE REPLACEMENT ALVINO ALONZO [id number] Care Teams Intensive Care Nurse Relationship Specialty Start Date End Date Hay Mayberry NP [address] [place] [address] PCP - General Director Traffic And Planning 12/31/17 Additional Source Comments The information contained in this document represents components of the legal health record. It is not the complete legal health record.[facility]
--- OUTSIDE RECORDS SUMMARY | 2025-10-12 13:20 | XMS_ITS | Encounter Summary ---
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 It is not the complete legal health record.[facility]
--- OUTSIDE RECORDS SUMMARY | 2025-10-12 13:20 | XMS_ITS | Clinical Summary ---
Author Organization [employer] Address [address] [facility] 7t [place] [address] Care Team Providers Care Computer Animator Name Role Phone Unavailable Primary Care Provider [...]
--- OUTSIDE RECORDS SUMMARY | 2025-10-12 13:20 | XMS_ITS | Encounter Summary ---
Author Organization [facility] Address [address] 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 pectoris Procedures NC Myocardial Perfusion Exercise Multiple NC Myocardial Perfusion Stress Single Christian Shields MD Phone: tel: [email or web address] Referral ID Status Reason Start Date Expiration Date Visits Re quested Visits Authorized [id number] Closed 11/19/2017 11/19/2018 1 1 Encounter Details Date Type Department Care Team (Latest Contact Info) Description 11/28/2017 Ancillary Orders [facility] [address] [facility] 3rd Floor, [address] [place] [address] Christian Shields MD [address] [place] [phone] [email or web address] Atherosclerosis 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 EKG reviewed with Dr. 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 It is not the complete legal health record.[facility]
== END 2025-10-12 10:04 | disposition home or self-care (01) ==
LOC: HO.LAB 10:03
PROVIDERS: PCP Family Medicine; Visit Provider Family Medicine
DX: Z00.00 Encounter for general adult medical examination without abnormal findings (principal); I10 Essential (primary) hypertension; M54.9 Dorsalgia, unspecified; Z12.5 Encounter for screening for malignant neoplasm of prostate
CPT/HCPCS: 36415; 71101; 72072; 72100; 80053; 80061; 81001; 81003; 82043; 82570; 84153; 84443; 85025